=== PATIENT | female | born 1945 | race Hispanic/Latino ===

== ENCOUNTER 2017-07-05 14:40 | Outpatient (CLI) | payer MEDICARE, MEDICAID | END 2017-07-05 14:41 | disposition home or self-care (01) | LOC: BICMAMMO 14:40 | PROVIDERS: ATTEND Internal Medicine | DX: Z80.3 Family history of malignant neoplasm of breast; Z85.3 Personal history of malignant neoplasm of breast; Z12.31 Encounter for screening mammogram for malignant neoplasm of breast | CPT/HCPCS: 77063; 77067 ==

== ENCOUNTER 2021-03-30 09:17 | Inpatient (IN) | payer MEDICARE ==
[2021-03-30 11:56] LABS: #Eosinphils 0.1 thou/uL (0.0-0.7); #Lymphocytes 1.3 thou/uL (1.20-3.40); #Neutrophils 12.5 thou/uL (1.40-6.50); %Basophils 0.2 % (0.0-1.0); %Eosinophils 0.5 % (0.0-10.0); %Lymphocytes 8.4 % (21.0-51.0); %Monocytes 12.7 % (0.0-10.0); %Neutrophils 78.3 % (42.0-75.0); Mean Corpuscular HGB CONC 34.6 g/dL (32.0-36.0); Mean Corpuscular Hemoglobin 33.5 pg (27.0-31.0); Mean Corpuscular Volume 96.7 fL (78.0-98.0); Mean Platelet Volume 7.1 fL (7.4-10.4); Platelet Count 208 thou/uL (130-400)
[2021-03-30 12:05] LABS: ALT (SGPT) 22 U/L (8-55); AST (SGOT) 24 U/L (5-34); Albumin 4.2 g/dL (3.4-4.8); Alkaline Phosphatase 90 U/L (40-110); Anion Gap 14 mmol/L (10-20); BUN (Urea Nitrogen) 19 mg/dL (9.8-20.1); Bilirubin, Total 0.5 mg/dL (0.2-1.2); Calc. Creatinine Clearance 0 mL/min (70-130); Calcium 9.7 mg/dL (7.8-10.44); Carbon Dioxide 24 mmol/L (23-31); Chloride 105 mmol/L (98-107); Globulin 3.8 g/dL (2.4-3.5); Glucose 100 mg/dL (83-110); Lipase 40 U/L (8-78); Potassium 4.6 mmol/L (3.5-5.1); Sodium 138 mmol/L (136-145)
[2021-03-30 13:04] LABS: Bacteria/HPF None Seen HPF (None Seen); Bilirubin Negative (Negative); Blood, Urine Negative (Negative); Clarity Clear (Clear); Glucose, Urine (Dipstick) Normal (Negative); Ketone, Urine Negative (Negative); Leukocyte 25 Leu/uL (Negative); Nitrite Negative (Negative); Protein, Urine (Dipstick) Negative (Neg-Trace); RBC/HPF 0-3 HPF (0-3); Specific Gravity, Urine 1.014 (1.002-1.036); Squamous Epithelial 0-3 HPF (0-3); Urobilinogen Normal mg/dL (Less than 2); pH, Urine 7.5 (5.0-9.0)
[2021-03-30] MEDS ORDERED: Morphine 4 MG/ML VIAL ONE (14:14)
[2021-03-30] MEDS ORDERED: Cefepime 2 GM VIAL ONE (15:43)
[2021-03-30] MEDS ORDERED: Vancomycin 1 GM/200 ML BAG ONE (15:43)
[2021-03-30 17:36] LABS: SARS-CoV-2 NAA Rapid Test Not Detected (NotDetected)
[2021-03-30] MEDS ORDERED: Bisacodyl 5 MG TAB PO PRN (18:14)
[2021-03-30] MEDS ORDERED: Ondansetron PF 4 MG/2 ML Vial IVP PRN (18:14)
[2021-03-30] MEDS ORDERED: Acetaminophen 325 MG TAB PO PRN (18:14)
[2021-03-30] MEDS ORDERED: Docusate 100 MG CAP PO SCH (19:00)
[2021-03-30] MEDS ORDERED: Morphine 2 MG/ML VIAL SLOW IVP PRN (19:18)
[2021-03-30] MEDS ORDERED: Morphine 4 MG/ML VIAL SLOW IVP PRN ×2 (19:18→21:42)
[2021-03-30] MEDS ORDERED: Famotidine/PF 20 mg/2ml Vial SLOW IVP SCH (21:00)
[2021-03-30 21:32] VITALS: BMI 25.4
[2021-03-30] MEDS ORDERED: hydrALAZINE 20 MG/ML VIAL SLOW IVP PRN (21:54)
[2021-03-30] MEDS: Sodium Chloride 0.9% 1,000 ML IV SCH (22:24)
[2021-03-30] MEDS ORDERED: Spironolactone 25 MG TAB PO SCH (23:00)
[2021-03-30] MEDS ORDERED: Nortriptyline HCl 25 MG CAP PO SCH (23:00)
[2021-03-30] MEDS ORDERED: Furosemide 40 MG TAB PO SCH (23:00)
[2021-03-30] MEDS ORDERED: Atorvastatin Calcium 10 MG TAB PO SCH (23:00)
[2021-03-31] MEDS: Levothyroxine Sodium 25 MCG TAB PO SCH (04:45)
[2021-03-31] MEDS ORDERED: FLU VACC QS2021-22(65YR UP)/PF 240 MCG/0.7 ML SYRINGE IM ONE (09:00)
[2021-03-31 09:14] LABS: Hemoglobin 11.8 g/dL (12.0-16.0); Mean Corpuscular HGB CONC 33.6 g/dL (32.0-36.0); Mean Corpuscular Hemoglobin 33.3 pg (27.0-31.0); Mean Platelet Volume 7.4 fL (7.4-10.4); Platelet Count 162 thou/uL (130-400); RBC Distribution Width 11.2 % (11.5-14.5); Red Blood Cell (RBC) Count 3.55 mill/uL (4.20-5.40); White Blood Cell (WBC) Count 11.8 thou/uL (4.8-10.8)
[2021-03-31] MEDS: Sodium Chloride 0.9% 1,000 ML IV SCH (09:16)
[2021-03-31] MEDS: Senokot S 8.6-50 MG TAB PO SCH ×2 (09:17→20:30)
[2021-03-31] MEDS: Famotidine/PF 20 mg/2ml Vial SLOW IVP SCH (09:17)
[2021-03-31] MEDS: Spironolactone 25 MG TAB PO SCH (09:17)
[2021-03-31] MEDS: Cefepime 2 GM in Sodium Chloride 0.9% 100 ML IVPB SCH (09:18)
[2021-03-31 09:42] LABS: ALT (SGPT) 22 U/L (8-55); AST (SGOT) 33 U/L (5-34); Albumin 3.6 g/dL (3.4-4.8); Alkaline Phosphatase 75 U/L (40-110); Anion Gap 15 mmol/L (10-20); BUN (Urea Nitrogen) 18 mg/dL (9.8-20.1); Bilirubin, Total 0.6 mg/dL (0.2-1.2); Calc. Creatinine Clearance 47 mL/min (70-130); Calcium 8.7 mg/dL (7.8-10.44); Carbon Dioxide 17 mmol/L (23-31); Chloride 105 mmol/L (98-107); Globulin 3.8 g/dL (2.4-3.5); Glucose 108 mg/dL (83-110); Potassium 4.3 mmol/L (3.5-5.1); Protein, Total 7.4 g/dL (5.8-8.1); Sodium 133 mmol/L (136-145)
[2021-03-31 10:06] LABS: Band 18 % (5-11); Lymphocytes 13 % (21-51); MDiff Complete? YES; Monocytes 13 % (0-10); Neutrophil 56 % (42-75); Platelet Morphology Comment Appears Adequate; RBC Morphology Normal
[2021-03-31] MEDS: Atorvastatin Calcium 10 MG TAB PO SCH (20:30)
[2021-03-31] MEDS: Nortriptyline HCl 25 MG CAP PO SCH (20:39)
[2021-03-31] MEDS ORDERED: Nortriptyline HCl 25 MG CAP PO SCH (21:00)
[2021-04-01] MEDS: Sodium Chloride 0.9% 1,000 ML IV SCH ×3 (04:05→23:18)
[2021-04-01] MEDS: Levothyroxine Sodium 25 MCG TAB PO SCH (04:56)
[2021-04-01] MEDS ORDERED: Furosemide 40 MG TAB PO SCH (09:00)
[2021-04-01] MEDS: Famotidine/PF 20 mg/2ml Vial SLOW IVP SCH (09:01)
[2021-04-01] MEDS: Senokot S 8.6-50 MG TAB PO SCH ×2 (09:02→20:27)
[2021-04-01] MEDS: Spironolactone 25 MG TAB PO SCH (09:03)
[2021-04-01] MEDS: Cefepime 2 GM in Sodium Chloride 0.9% 100 ML IVPB SCH (09:03)
[2021-04-01] MEDS ORDERED: Polyethylene Glycol 3350 17 GM Packet PO SCH (11:15)
[2021-04-01] MEDS ORDERED: Naproxen 500 MG TAB PO SCH (11:30)
[2021-04-01] MEDS: Docusate 100 MG CAP PO SCH ×2 (16:01→20:26)
[2021-04-01] MEDS: Nortriptyline HCl 25 MG CAP PO SCH (20:25)
[2021-04-01] MEDS: Atorvastatin Calcium 10 MG TAB PO SCH (20:25)
[2021-04-01] MEDS: Fish Oil 1,000 MG CAP PO SCH (20:26)
[2021-04-01] MEDS: Naproxen 500 MG TAB PO SCH (20:27)
[2021-04-02] MEDS: Levothyroxine Sodium 25 MCG TAB PO SCH (05:46)
[2021-04-02] MEDS: Spironolactone 25 MG TAB PO SCH (08:06)
[2021-04-02] MEDS: Cefepime 2 GM in Sodium Chloride 0.9% 100 ML IVPB SCH (08:07)
[2021-04-02] MEDS: Docusate 100 MG CAP PO SCH (08:08)
[2021-04-02] MEDS: Famotidine/PF 20 mg/2ml Vial SLOW IVP SCH (08:09)
[2021-04-02] MEDS: Fish Oil 1,000 MG CAP PO SCH (08:10)
[2021-04-02] MEDS: Naproxen 500 MG TAB PO SCH (08:11)
[2021-04-02] MEDS: Senokot S 8.6-50 MG TAB PO SCH (08:12)
[2021-04-02] MEDS: Sodium Chloride 0.9% 1,000 ML IV SCH (08:13)
[2021-04-02] MEDS ORDERED: Magnesium Oxide 250 MG TAB PO SCH (09:00)
[2021-04-02] MEDS ORDERED: Aspirin 325 MG TAB PO SCH (09:00)
[2021-04-02] MEDS ORDERED: Calcium Carbonate 600 MG + Vit D TAB PO SCH (09:00)
[2021-04-02 12:04] VITALS: TEMP 98
[2021-04-02 12:08] VITALS: BP 114/57
[2021-04-04] MEDS ORDERED: Potassium Chloride 8 MEQ TAB PO SCH (09:00)
== END 2021-04-02 13:46 | disposition home or self-care (01) | DRG 392 ==
LOC: SUATTDRO 09:17 → ERS 09:17 → 2SE 16:07 → 2SW 03-31 14:00 → OBSVTOIN 04-01 11:20
PROVIDERS: ADMIT Family Medicine; ATTEND Internal Medicine
DX: R10.32 Left lower quadrant pain (principal); K57.32 Diverticulitis of large intestine without perforation or abscess without bleeding; M48.56XA Collapsed vertebra, not elsewhere classified, lumbar region, initial encounter for fracture; N30.00 Acute cystitis without hematuria; Z20.822 Contact with and (suspected) exposure to COVID-19; I10 Essential (primary) hypertension; F03.90 Unspecified dementia, unspecified severity, without behavioral disturbance, psychotic disturbance, mood disturbance, and anxiety; E03.9 Hypothyroidism, unspecified; E78.5 Hyperlipidemia, unspecified; J02.9 Acute pharyngitis, unspecified; K59.01 Slow transit constipation; Z86.73 Personal history of transient ischemic attack (TIA), and cerebral infarction without residual deficits; Z98.890 Other specified postprocedural states; Z85.3 Personal history of malignant neoplasm of breast; Z90.49 Acquired absence of other specified parts of digestive tract; Z90.12 Acquired absence of left breast and nipple; Z87.890 Personal history of sex reassignment
CPT/HCPCS: 0240U; 36415; 74177; 80053; 81003; 81015; 83605; 83690; 84443; 85025; 86060; 87040; 87081; 87430; 93005; 96365; 96366; 96368; 96375; 96376; G0378; J0692; J2270; J3370; J3490; J7050; S0028

== ENCOUNTER 2022-11-21 18:51 | Emergency (ER) | payer MEDICARE ==
[2022-11-21] MEDS ORDERED: Acetaminophen 500 MG TAB ONE (20:48)
== END 2022-11-21 20:52 | disposition home or self-care (01) ==
LOC: ERS 18:51
DX: S00.93XA Contusion of unspecified part of head, initial encounter (principal); E78.00 Pure hypercholesterolemia, unspecified; I10 Essential (primary) hypertension; W18.12XA Fall from or off toilet with subsequent striking against object, initial encounter; Z79.82 Long term (current) use of aspirin
CPT/HCPCS: 70450; 70486

== ENCOUNTER 2023-01-04 14:24 | Outpatient (CLI) | payer MEDICARE | END 2023-01-04 14:25 | disposition home or self-care (01) | LOC: CT 14:24 | PROVIDERS: ATTEND Neurological Surgery | DX: I62.03 Nontraumatic chronic subdural hemorrhage (principal) | CPT/HCPCS: 70450 ==

== ENCOUNTER 2023-01-24 13:35 | Outpatient (CLI) | payer MEDICARE | END 2023-01-24 13:36 | disposition home or self-care (01) | LOC: CT 13:35 | PROVIDERS: ATTEND Neurological Surgery | DX: I62.03 Nontraumatic chronic subdural hemorrhage (principal) | CPT/HCPCS: 70450 ==

== ENCOUNTER 2023-02-21 13:39 | Outpatient (CLI) | payer MEDICARE | END 2023-02-21 13:40 | disposition home or self-care (01) | LOC: CT 13:39 | PROVIDERS: ATTEND Neurological Surgery | DX: I62.03 Nontraumatic chronic subdural hemorrhage (principal); Z98.890 Other specified postprocedural states | CPT/HCPCS: 70450 ==

== ENCOUNTER 2023-03-04 19:13 | Emergency (ER) | payer MEDICARE | END 2023-03-04 22:00 | disposition home or self-care (01) | LOC: ERS 19:13 | DX: S00.93XA Contusion of unspecified part of head, initial encounter (principal); E03.9 Hypothyroidism, unspecified; I10 Essential (primary) hypertension; W18.00XA Striking against unspecified object with subsequent fall, initial encounter; Z79.899 Other long term (current) drug therapy; Z79.82 Long term (current) use of aspirin; Z86.73 Personal history of transient ischemic attack (TIA), and cerebral infarction without residual deficits | CPT/HCPCS: 70450; 72125; 93005 ==

== ENCOUNTER 2023-03-19 13:45 | Outpatient (CLI) | payer MEDICARE | END 2023-03-19 13:46 | disposition home or self-care (01) | LOC: CT 13:45 | PROVIDERS: ATTEND Neurological Surgery | DX: I62.03 Nontraumatic chronic subdural hemorrhage (principal) | CPT/HCPCS: 70450 ==

== ENCOUNTER 2023-04-28 06:07 | Emergency (ER) | payer MEDICARE ==
[2023-04-28] MEDS ORDERED: Lidocaine 4% Patch TD SCH (08:30)
[2023-04-28] MEDS ORDERED: Lidocaine/Transparent Dressing 1 EACH KIT ONE (08:45)
[2023-04-28] MEDS ORDERED: Boostrix 0.5 ML (Tdap) VIAL (>/=7 yrs of age) ONE (08:47)
[2023-04-28] MEDS ORDERED: Transdermal Patch Removal TOP SCH (21:00)
== END 2023-04-28 12:21 | disposition home or self-care (01) ==
LOC: ERS 06:07
DX: S01.81XA Laceration without foreign body of other part of head, initial encounter (principal); S01.112A Laceration without foreign body of left eyelid and periocular area, initial encounter; S50.12XA Contusion of left forearm, initial encounter; S80.11XA Contusion of right lower leg, initial encounter; R07.89 Other chest pain; I10 Essential (primary) hypertension; W01.0XXA Fall on same level from slipping, tripping and stumbling without subsequent striking against object, initial encounter; Y93.01 Activity, walking, marching and hiking; Z23 Encounter for immunization
CPT/HCPCS: 12013; 70200; 70450; 90471; 90715

== ENCOUNTER 2023-05-01 10:20 | Inpatient (IN) | payer MEDICARE ==
[2023-05-01] MEDS ORDERED: Lidocaine 1% w/Epinephrine 1:100K 20 ML VIAL ONE (10:45)
[2023-05-01 12:18] LABS: #Eosinphils 0.4 thou/uL (0.0-0.7); #Monocytes 0.9 thou/uL (0.11-0.59); #Neutrophils 7.6 thou/uL (1.40-6.50); %Basophils 0.3 % (0.0-1.0); %Eosinophils 3.2 % (0.0-10.0); %Lymphocytes 17.8 % (21.0-51.0); %Monocytes 8.5 % (0.0-10.0); %Neutrophils 69.8 % (42.0-75.0); Hemoglobin 10.9 g/dL (12.0-16.0); Mean Corpuscular Hemoglobin 32.2 pg (27.0-31.0); Mean Corpuscular Volume 97.3 fl (78.0-98.0); Platelet Count 291 10x3/uL (130-400); RBC Distribution Width 13.1 % (11.5-14.5); Red Blood Cell (RBC) Count 3.39 mill/uL (4.20-5.40); White Blood Cell (WBC) Count 10.9 10x3/uL (4.8-10.8)
[2023-05-01 12:44] LABS: ALT (SGPT) 25 U/L (8-55); AST (SGOT) 57 U/L (5-34); Alkaline Phosphatase 87 U/L (40-110); Anion Gap 11 mmol/L (10-20); BUN (Urea Nitrogen) 21 mg/dL (9.8-20.1); Bilirubin, Total 0.8 mg/dL (0.2-1.2); Calc. Creatinine Clearance 0 mL/min (70-130); Calcium 9.1 mg/dL (7.8-10.44); Carbon Dioxide 24 mmol/L (23-31); Chloride 106 mmol/L (98-107); Estimated GFR 49; Globulin 3.7 g/dL (2.4-3.5); Glucose 113 mg/dL (83-110); Potassium 4.4 mmol/L (3.5-5.1); Protein, Total 7.7 g/dL (5.8-8.1); Sodium 137 mmol/L (136-145)
[2023-05-01 12:48] LABS: Troponin I Less than 0.010 ng/mL (< 0.028)
[2023-05-01] MEDS ORDERED: D5 1/2 NS w/20 mEq KCL 1,000 ML IV SCH (15:30)
[2023-05-01] MEDS ORDERED: Ondansetron PF 4 MG/2 ML Vial IVP PRN (15:30)
[2023-05-01] MEDS ORDERED: Ondansetron ODT 4 MG TAB SL PRN (15:30)
[2023-05-01] MEDS ORDERED: Ipratropium/Albuterol 3 ML NEB NEB PRN (15:42)
[2023-05-01] MEDS ORDERED: Meclizine HCl 25 MG TAB PO PRN (15:44)
[2023-05-01] MEDS ORDERED: Sodium Chloride 0.9% 1,000 ML IV SCH ×2 (15:45→15:53)
[2023-05-01] MEDS ORDERED: hydrALAZINE 20 MG/ML VIAL SLOW IVP PRN (15:56)
[2023-05-01] MEDS: Acetaminophen 500 MG TAB PO SCH ×2 (18:30→23:16)
[2023-05-01 18:35] VITALS: BMI 26.0
[2023-05-01 18:55] LABS: Bilirubin Negative (Negative); Blood, Urine Negative (Negative); CAUTI Indications for Culture Alt mental st,lethar; Clarity Clear (Clear); Glucose, Urine (Dipstick) Normal (Negative); Ketone, Urine Negative (Negative); Leukocyte 75 Leu/uL (Negative); Nitrite Negative (Negative); Protein, Urine (Dipstick) Negative (Neg-Trace); RBC/HPF None Seen HPF (0-3); Specific Gravity, Urine 1.002 (1.002-1.036); Squamous Epithelial None Seen HPF (0-3); Urobilinogen Normal mg/dL (Less than 2); WBC/HPF 0-3 HPF (0-3)
[2023-05-01 19:00] LABS: Bacteria/HPF 1+ HPF (None Seen)
[2023-05-01 19:01] LABS: Urine Culture Reflex No No
[2023-05-01] MEDS ORDERED: Famotidine/PF 20 mg/2ml Vial SLOW IVP SCH (21:00)
[2023-05-01] MEDS: Atorvastatin Calcium 10 MG TAB PO SCH (21:03)
[2023-05-01] MEDS: Docusate 100 MG CAP PO SCH (21:04)
[2023-05-01] MEDS: cefTRIAXone\\ROCEPHIN 1 GM in Sodium Chloride 0.9% 100 ML IVPB SCH (21:04)
[2023-05-01] MEDS ORDERED: Albumin 5% 25 GM (500 mL) BOT IVPB SCH (21:45)
[2023-05-02] MEDS ORDERED: Hydrocortisone Sod Succ/PF 100 mg/2 ml Vial IVP SCH (03:30)
[2023-05-02 04:03] LABS: #Eosinphils 0.2 thou/uL (0.0-0.7); #Monocytes 0.8 thou/uL (0.11-0.59); #Neutrophils 3.2 thou/uL (1.40-6.50); %Basophils 0.4 % (0.0-1.0); %Eosinophils 3.5 % (0.0-10.0); %Lymphocytes 23.4 % (21.0-51.0); %Monocytes 13.9 % (0.0-10.0); %Neutrophils 58.6 % (42.0-75.0); Hematocrit 24.5 % (36.0-47.0); Mean Corpuscular HGB CONC 32.2 g/dL (32.0-36.0); Mean Corpuscular Hemoglobin 31.7 pg (27.0-31.0); Mean Corpuscular Volume 98.4 fl (78.0-98.0); Mean Platelet Volume 9.8 fL (7.4-10.4); Platelet Count 204 10x3/uL (130-400); RBC Distribution Width 12.8 % (11.5-14.5); Red Blood Cell (RBC) Count 2.49 mill/uL (4.20-5.40); White Blood Cell (WBC) Count 5.4 10x3/uL (4.8-10.8)
[2023-05-02 04:12] LABS: Hemoglobin 7.9 g/dL (12.0-16.0)
[2023-05-02 04:25] LABS: Anion Gap 12 mmol/L (10-20); BUN (Urea Nitrogen) 15 mg/dL (9.8-20.1); Calc. Creatinine Clearance 49 mL/min (70-130); Carbon Dioxide 19 mmol/L (23-31); Chloride 115 mmol/L (98-107); Estimated GFR 63; Glucose 90 mg/dL (83-110); Potassium 4.1 mmol/L (3.5-5.1); Sodium 142 mmol/L (136-145)
[2023-05-02] MEDS: Acetaminophen 500 MG TAB PO SCH ×4 (05:28→23:15)
[2023-05-02] MEDS ORDERED: Iopamidol-370 76% 500 ML MDV (1 ML CHARGE) ONE (09:38)
[2023-05-02] MEDS: Levothyroxine Sodium 25 MCG TAB PO SCH (10:01)
[2023-05-02] MEDS: Ascorbic Acid 500 mg Chewable Tablet PO SCH ×2 (10:01→20:15)
[2023-05-02] MEDS: Docusate 100 MG CAP PO SCH ×3 (10:01→20:17)
[2023-05-02] MEDS: Pantoprazole 40 MG VIAL IVP SCH ×2 (10:01→20:16)
[2023-05-02] MEDS: Magnesium Oxide 250 MG TAB PO SCH (10:01)
[2023-05-02] MEDS: Saccharomyces boulardii 250 MG CAP PO SCH (10:01)
[2023-05-02] MEDS: Ferrous Sulfate 325 MG TAB PO SCH ×2 (10:01→17:08)
[2023-05-02] MEDS ORDERED: Lorazepam 2 MG/ML VIAL SLOW IVP PRN (10:05)
[2023-05-02] MEDS: Hydrocortisone Sod Succ/PF 100 mg/2 ml Vial IVP SCH ×2 (15:02→22:34)
[2023-05-02] MEDS: QUEtiapine 25 MG TAB PO SCH (17:08)
[2023-05-02] MEDS: Atorvastatin Calcium 10 MG TAB PO SCH (20:15)
[2023-05-02] MEDS: Senokot S 8.6-50 MG TAB PO SCH ×2 (20:15→20:35)
[2023-05-02] MEDS: cefTRIAXone\\ROCEPHIN 1 GM in Sodium Chloride 0.9% 100 ML IVPB SCH (20:16)
[2023-05-02] MEDS: Lactulose 20 GM (30 mL) UDCUP PO SCH (20:17)
[2023-05-02 20:37] LABS: Hematocrit 30.4 % (36.0-47.0); Hemoglobin 10.2 g/dL (12.0-16.0)
[2023-05-03] MEDS: Hydrocortisone Sod Succ/PF 100 mg/2 ml Vial IVP SCH ×3 (05:51→23:34)
[2023-05-03] MEDS: Acetaminophen 500 MG TAB PO SCH ×5 (06:29→23:36)
[2023-05-03 07:27] LABS: #Eosinphils 0.1 thou/uL (0.0-0.7); #Monocytes 0.7 thou/uL (0.11-0.59); #Neutrophils 4.8 thou/uL (1.40-6.50); %Basophils 0.4 % (0.0-1.0); %Eosinophils 1.4 % (0.0-10.0); %Lymphocytes 19.8 % (21.0-51.0); %Monocytes 9.5 % (0.0-10.0); %Neutrophils 68.6 % (42.0-75.0); Hematocrit 30.7 % (36.0-47.0); Hemoglobin 10.3 g/dL (12.0-16.0); Mean Corpuscular HGB CONC 33.6 g/dL (32.0-36.0); Mean Corpuscular Hemoglobin 31.7 pg (27.0-31.0); Mean Corpuscular Volume 94.5 fl (78.0-98.0); Mean Platelet Volume 9.4 fL (7.4-10.4); Platelet Count 223 10x3/uL (130-400); RBC Distribution Width 14.6 % (11.5-14.5); Red Blood Cell (RBC) Count 3.25 mill/uL (4.20-5.40)
[2023-05-03] MEDS: Docusate 100 MG CAP PO SCH ×3 (07:27→20:06)
[2023-05-03] MEDS: Lactulose 20 GM (30 mL) UDCUP PO SCH ×3 (07:28→20:06)
[2023-05-03] MEDS: Polyethylene Glycol 3350 17 GM Packet PO SCH (07:28)
[2023-05-03] MEDS: Senokot S 8.6-50 MG TAB PO SCH ×2 (07:28→20:06)
[2023-05-03] MEDS: Saccharomyces boulardii 250 MG CAP PO SCH (09:42)
[2023-05-03] MEDS: Pantoprazole 40 MG VIAL IVP SCH ×2 (09:42→20:13)
[2023-05-03] MEDS: Ferrous Sulfate 325 MG TAB PO SCH ×2 (09:42→18:07)
[2023-05-03] MEDS: Levothyroxine Sodium 25 MCG TAB PO SCH (09:42)
[2023-05-03] MEDS: Ascorbic Acid 500 mg Chewable Tablet PO SCH ×2 (09:42→20:14)
[2023-05-03] MEDS: Magnesium Oxide 250 MG TAB PO SCH (09:42)
[2023-05-03] MEDS: QUEtiapine 25 MG TAB PO SCH (18:06)
[2023-05-03] MEDS: Atorvastatin Calcium 10 MG TAB PO SCH (20:14)
[2023-05-03] MEDS: cefTRIAXone\\ROCEPHIN 1 GM in Sodium Chloride 0.9% 100 ML IVPB SCH (20:14)
[2023-05-04] MEDS: Acetaminophen 500 MG TAB PO SCH ×3 (05:31→17:33)
[2023-05-04] MEDS: Hydrocortisone Sod Succ/PF 100 mg/2 ml Vial IVP SCH ×2 (05:31→14:39)
[2023-05-04] MEDS: Pantoprazole 40 MG VIAL IVP SCH ×2 (08:18→20:20)
[2023-05-04] MEDS: Ascorbic Acid 500 mg Chewable Tablet PO SCH ×2 (08:18→20:18)
[2023-05-04] MEDS: Senokot S 8.6-50 MG TAB PO SCH ×2 (08:19→20:19)
[2023-05-04] MEDS: Magnesium Oxide 250 MG TAB PO SCH (08:19)
[2023-05-04] MEDS: Saccharomyces boulardii 250 MG CAP PO SCH (08:19)
[2023-05-04] MEDS: Ferrous Sulfate 325 MG TAB PO SCH ×2 (08:19→17:34)
[2023-05-04] MEDS: Lactulose 20 GM (30 mL) UDCUP PO SCH ×3 (08:20→20:20)
[2023-05-04] MEDS: Levothyroxine Sodium 25 MCG TAB PO SCH (08:22)
[2023-05-04] MEDS: Polyethylene Glycol 3350 17 GM Packet PO SCH (08:24)
[2023-05-04] MEDS: Docusate 100 MG CAP PO SCH ×3 (08:29→20:18)
[2023-05-04] MEDS ORDERED: FLU VACC QS2023(65UP)/MF59C/PF 60 MCG/0.5 ML SYRINGE IM ONE (09:00)
[2023-05-04] MEDS: QUEtiapine 25 MG TAB PO SCH (17:34)
[2023-05-04] MEDS: Atorvastatin Calcium 10 MG TAB PO SCH (20:19)
[2023-05-05] MEDS: Acetaminophen 500 MG TAB PO SCH ×5 (00:41→23:52)
[2023-05-05] MEDS: Pantoprazole 40 MG VIAL IVP SCH (09:23)
[2023-05-05] MEDS: Polyethylene Glycol 3350 17 GM Packet PO SCH (09:24)
[2023-05-05] MEDS: Ferrous Sulfate 325 MG TAB PO SCH ×2 (09:24→17:43)
[2023-05-05] MEDS: Senokot S 8.6-50 MG TAB PO SCH ×3 (09:24→20:55)
[2023-05-05] MEDS: Docusate 100 MG CAP PO SCH (09:24)
[2023-05-05] MEDS: Ascorbic Acid 500 mg Chewable Tablet PO SCH ×2 (09:24→20:55)
[2023-05-05] MEDS: Saccharomyces boulardii 250 MG CAP PO SCH (09:24)
[2023-05-05] MEDS: Magnesium Oxide 250 MG TAB PO SCH (09:24)
[2023-05-05] MEDS: Levothyroxine Sodium 25 MCG TAB PO SCH (09:25)
[2023-05-05] MEDS: Lactulose 20 GM (30 mL) UDCUP PO SCH ×3 (09:25→20:56)
[2023-05-05] MEDS ORDERED: Melatonin 3 MG TAB PO SCH ×2 (09:30→21:45)
[2023-05-05] MEDS: Phenazopyridine HCl 100 MG TAB PO SCH ×2 (12:25→17:42)
[2023-05-05] MEDS: QUEtiapine 25 MG TAB PO SCH (17:43)
[2023-05-05] MEDS: Folic Acid 1 MG TAB PO SCH (20:51)
[2023-05-05] MEDS: Atorvastatin Calcium 10 MG TAB PO SCH (20:51)
[2023-05-05] MEDS: Cyanocobalamin (Vitamin B-12) 1,000 MCG TAB PO SCH (20:52)
[2023-05-05] MEDS: Thiamine 100 MG TAB PO SCH (20:54)
[2023-05-05] MEDS: Multivit, Therapeutic 1 TAB PO SCH (20:54)
[2023-05-06 04:57] LABS: #Eosinphils 0.5 thou/uL (0.0-0.7); #Neutrophils 5.1 thou/uL (1.40-6.50); %Basophils 0.2 % (0.0-1.0); %Eosinophils 6.6 % (0.0-10.0); %Lymphocytes 16.9 % (21.0-51.0); %Monocytes 12.5 % (0.0-10.0); %Neutrophils 63.6 % (42.0-75.0); Hematocrit 34.1 % (36.0-47.0); Hemoglobin 11.6 g/dL (12.0-16.0); Mean Corpuscular Hemoglobin 31.6 pg (27.0-31.0); Mean Corpuscular Volume 92.9 fl (78.0-98.0); Mean Platelet Volume 9.3 fL (7.4-10.4); Platelet Count 240 10x3/uL (130-400); RBC Distribution Width 13.9 % (11.5-14.5); Red Blood Cell (RBC) Count 3.67 mill/uL (4.20-5.40); White Blood Cell (WBC) Count 8.1 10x3/uL (4.8-10.8)
[2023-05-06] MEDS: Acetaminophen 500 MG TAB PO SCH (05:20)
[2023-05-06 05:28] LABS: Anion Gap 10 mmol/L (10-20); BUN (Urea Nitrogen) 30 mg/dL (9.8-20.1); Calc. Creatinine Clearance 48 mL/min (70-130); Calcium 9.1 mg/dL (7.8-10.44); Carbon Dioxide 24 mmol/L (23-31); Chloride 109 mmol/L (98-107); Estimated GFR 61; Glucose 82 mg/dL (83-110); Magnesium 1.9 mg/dL (1.6-2.6); Phosphorus 3.3 mg/dL (2.3-4.7); Potassium 4.2 mmol/L (3.5-5.1); Sodium 139 mmol/L (136-145)
[2023-05-06] MEDS ORDERED: Acetaminophen 500 MG TAB PO SCH (07:54)
[2023-05-06] MEDS: Ascorbic Acid 500 mg Chewable Tablet PO SCH ×2 (08:49→19:57)
[2023-05-06] MEDS: Saccharomyces boulardii 250 MG CAP PO SCH (08:50)
[2023-05-06] MEDS: Senokot S 8.6-50 MG TAB PO SCH ×2 (08:50→20:01)
[2023-05-06] MEDS: Ferrous Sulfate 325 MG TAB PO SCH ×2 (08:50→17:02)
[2023-05-06] MEDS: Polyethylene Glycol 3350 17 GM Packet PO SCH (08:50)
[2023-05-06] MEDS: Dexamethasone 4 MG TAB PO SCH (08:51)
[2023-05-06] MEDS: Phenazopyridine HCl 100 MG TAB PO SCH ×3 (08:51→17:03)
[2023-05-06] MEDS: Levothyroxine Sodium 25 MCG TAB PO SCH (08:51)
[2023-05-06] MEDS: Magnesium Oxide 250 MG TAB PO SCH (08:52)
[2023-05-06] MEDS: Lactulose 20 GM (30 mL) UDCUP PO SCH ×3 (08:59→20:09)
[2023-05-06] MEDS: Acetaminophen/Codeine 30-300mg Tablet PO SCH ×3 (11:08→23:50)
[2023-05-06] MEDS: Acetaminophen 325 MG TAB PO SCH ×3 (11:08→23:51)
[2023-05-06] MEDS: QUEtiapine 25 MG TAB PO SCH (17:02)
[2023-05-06] MEDS: Thiamine 100 MG TAB PO SCH (19:57)
[2023-05-06] MEDS: Cyanocobalamin (Vitamin B-12) 1,000 MCG TAB PO SCH (19:57)
[2023-05-06] MEDS: Multivit, Therapeutic 1 TAB PO SCH (19:58)
[2023-05-06] MEDS: Atorvastatin Calcium 10 MG TAB PO SCH (19:58)
[2023-05-06] MEDS: Folic Acid 1 MG TAB PO SCH (19:58)
[2023-05-06] MEDS: Magnesium Oxide 400 MG TAB PO SCH (19:58)
[2023-05-06] MEDS ORDERED: Melatonin 3 MG TAB PO SCH (21:00)
[2023-05-07] MEDS ORDERED: Levothyroxine Sodium 25 MCG TAB PO SCH (06:00)
[2023-05-07] MEDS: Acetaminophen 325 MG TAB PO SCH ×3 (06:33→17:02)
[2023-05-07] MEDS: Acetaminophen/Codeine 30-300mg Tablet PO SCH ×3 (06:33→17:03)
[2023-05-07] MEDS: Polyethylene Glycol 3350 17 GM Packet PO SCH (08:41)
[2023-05-07] MEDS: Magnesium Oxide 400 MG TAB PO SCH (08:41)
[2023-05-07] MEDS: Phenazopyridine HCl 100 MG TAB PO SCH ×3 (08:41→17:03)
[2023-05-07] MEDS: Ferrous Sulfate 325 MG TAB PO SCH ×2 (08:41→17:04)
[2023-05-07] MEDS: Saccharomyces boulardii 250 MG CAP PO SCH (08:41)
[2023-05-07] MEDS: Dexamethasone 4 MG TAB PO SCH (08:41)
[2023-05-07] MEDS: Ascorbic Acid 500 mg Chewable Tablet PO SCH (08:41)
[2023-05-07] MEDS: Senokot S 8.6-50 MG TAB PO SCH (08:42)
[2023-05-07] MEDS: Lactulose 20 GM (30 mL) UDCUP PO SCH ×2 (08:42→15:00)
[2023-05-07 15:52] VITALS: BP 145/87; TEMP 97.7
[2023-05-07] MEDS: QUEtiapine 25 MG TAB PO SCH (17:04)
== END 2023-05-07 17:48 | disposition home or self-care (01) | DRG 83 ==
LOC: ERS 10:20 → SURG A 15:23
PROVIDERS: ADMIT Student in an Organized Health Care Education/Training Program; ATTEND Student in an Organized Health Care Education/Training Program
PROC: 0HQ0XZZ Repair Scalp Skin, External Approach (ICD-10-PCS; principal; 2023-05-01)
PROC: 30233J1 Transfusion of Nonautologous Serum Albumin into Peripheral Vein, Percutaneous Approach (ICD-10-PCS; 2023-05-01)
PROC: 30233N1 Transfusion of Nonautologous Red Blood Cells into Peripheral Vein, Percutaneous Approach (ICD-10-PCS; 2023-05-02)
DX: S06.5XAA Traumatic subdural hemorrhage with loss of consciousness status unknown, initial encounter (principal); D62 Acute posthemorrhagic anemia; F02.B18 Dementia in other diseases classified elsewhere, moderate, with other behavioral disturbance; G81.91 Hemiplegia, unspecified affecting right dominant side; N30.00 Acute cystitis without hematuria; N17.9 Acute kidney failure, unspecified; E78.00 Pure hypercholesterolemia, unspecified; S06.6XAA Traumatic subarachnoid hemorrhage with loss of consciousness status unknown, initial encounter; E03.9 Hypothyroidism, unspecified; S01.01XA Laceration without foreign body of scalp, initial encounter; W19.XXXA Unspecified fall, initial encounter; G30.9 Alzheimer's disease, unspecified; I95.9 Hypotension, unspecified; G47.00 Insomnia, unspecified; E86.0 Dehydration; I12.9 Hypertensive chronic kidney disease with stage 1 through stage 4 chronic kidney disease, or unspecified chronic kidney disease; E83.42 Hypomagnesemia; N18.2 Chronic kidney disease, stage 2 (mild); Z86.73 Personal history of transient ischemic attack (TIA), and cerebral infarction without residual deficits; Z98.890 Other specified postprocedural states; Z90.49 Acquired absence of other specified parts of digestive tract; Z91.81 History of falling; Y92.009 Unspecified place in unspecified non-institutional (private) residence as the place of occurrence of the external cause
CPT/HCPCS: 12013; 36415; 36430; 70200; 70450; 71260; 72125; 74177; 75809; 80048; 80053; 81001; 82533; 83735; 84100; 84484; 85025; 86850; 86900; 86901; 90471; 90694; 90715; 93005; 93010; 93306; 93880; C9113; G0008; J0696; J1720; J2060; J3490; J7050; J8540; P9016; P9045; Q9967; S0028

== ENCOUNTER 2023-10-04 20:09 | Emergency (ER) | payer MEDICARE ==
[2023-10-04] MEDS ORDERED: diphenhydrAMINE 25 MG CAP ONE (20:31)
[2023-10-04] MEDS ORDERED: Famotidine 20 MG TAB ONE (20:31)
[2023-10-04] MEDS ORDERED: predniSONE 20 MG TAB ONE (20:32)
== END 2023-10-04 21:11 | disposition home or self-care (01) ==
LOC: ERS 20:09
DX: L25.9 Unspecified contact dermatitis, unspecified cause (principal); I10 Essential (primary) hypertension; E03.9 Hypothyroidism, unspecified; Z79.899 Other long term (current) drug therapy; Z55.6 Problems related to health literacy; Z79.82 Long term (current) use of aspirin
CPT/HCPCS: 99282; J7512